=== PATIENT | female | born 1990 | race Caucasian/White ===

== ENCOUNTER → 2023-10-17 | Outpatient (CLI) | payer OTHER, SELFPAY | END | disposition home or self-care (01) | LOC: MFPLAB 11:49 | PROVIDERS: PCP Family Medicine; Visit Provider Nurse Practitioner Family | DX: Z00.00 Encounter for general adult medical examination without abnormal findings (principal) ==

== ENCOUNTER → 2023-10-25 | Outpatient (CLI) | payer OTHER, SELFPAY ==
--- NOTE | 2023-10-25 11:11 | ECHOD_ITS ---
Reason For Study: PRE OP Procedure This was a 2D Doppler, Color Flow transthoracic echocardiogram. Exam performed in department. Left Ventricle Normal size and thickness. The left ventricular ejection fraction is 55 %. Normal diastololic function. Right Ventricle Normal right ventricle. Atria The left and right atria are normal. Mitral Valve Mild (1+) mitral valve insufficiency. Tricuspid Valve Trivial tricuspid valve insufficiency. Right ventricular systolic pressure estimated to be 36 mmHg. Aortic Valve Trisinus/trileaflet aortic valve. Pulmonic Valve The pulmonic valve is not well visualized. Great Vessels Normal sized aortic root. Pericardium/Pleural No pericardial effusion. MMode/2D Measurements & Calculations LVIDd: 5.1 cm IVSd: 0.62 cm Ao root diam: 2.8 cm LVIDs: 3.5 cm LVPWd: 0.81 cm LA dimension: 3.2 cm RVDd: 3.0 cm FS: 32.3 % LAV(MOD-bp): 52.2 ml LVAd ap4: 31.7 cm2 LVAd ap2: 30.9 cm2 LAV(MOD-bp) Indexed: 25.8 ml/m2 LVLd ap4: 8.6 cm LVLd ap2: 8.7 cm LAV(MOD-sp2): 48.9 ml EDV(MOD-sp4): 97.7 ml EDV(MOD-sp2): 90.8 ml LAV(MOD-sp4): 47.6 ml EDV(sp4-el): 99.0 ml EDV(sp2-el): 93.5 ml LVAs ap4: 18.8 cm2 LVAs ap2: 18.9 cm2 LVLs ap4: 7.0 cm LVLs ap2: 7.4 cm ESV(MOD-sp4): 43.0 ml ESV(MOD-sp2): 40.5 ml ESV(sp4-el): 42.6 ml ESV(sp2-el): 41.0 ml EF(MOD-sp4): 56.0 % EF(MOD-sp2): 55.3 % EF(sp4-el): 56.9 % SV(MOD-sp4): 54.7 ml SV(MOD-sp2): 50.2 ml SV(sp4-el): 56.3 ml TAPSE: 2.4 cm LA A4 area: 18.7 cm2 RA A4 area: 16.4 cm2 Time Measurements MV dec time: 0.24 sec Doppler Measurements & Calculations MV E max david: 96.9 cm/sec Lat Peak E' David: 22.6 cm/sec Med Peak E' David: 16.0 cm/sec MV A max david: 66.1 cm/sec E/E' lat: 4.3 E/E' med: 6.1 MV E/A: 1.5 MV V2 max: 109.2 cm/sec MV P1/2t max david: 128.6 cm/sec Ao V2 max: 139.4 cm/sec MV max P.8 mmHg MV P1/2t: 91.4 msec Ao max P.8 mmHg MV V2 mean: 60.4 cm/sec MV dec slope: 412.0 cm/sec2 Ao V2 mean: 103.9 cm/sec MV mean P.7 mmHg Ao mean P.8 mmHg MV V2 VTI: 33.8 cm MVA(P1/2t): 2.4 cm2 Ao V2 VTI: 32.3 cm AV (velocity ratio): 0.82 LV V1 max: 115.5 cm/sec MR max david: 518.3 cm/sec PA V2 max: 98.0 cm/sec LV V1 max P.3 mmHg MR max P.5 mmHg PA V2 mean: 69.7 cm/sec LV V1 mean P.2 mmHg MR mean david: 424.1 cm/sec LV V1 mean: 83.5 cm/sec MR mean P.7 mmHg LV V1 VTI: 26.4 cm MR VTI: 183.9 cm TR max david: 280.3 cm/sec TR max P.6 mmHg ECHO/Echo Complete Interpretation Summary The left ventricular ejection fraction is 55 %. Mild (1+) mitral valve insufficiency. Right ventricular systolic pressure estimated to be 36 mmHg. Ordering Physician: Elyssa Cheney Referring Physician: Katie Love Performed By: Jhonatan, Samantha, RDCS, RVT
== END | disposition home or self-care (01) ==
PROVIDERS: PCP Family Medicine; Referring Provider Nurse Practitioner Family; Visit Provider Nurse Practitioner Family
DX: Z01.818 Encounter for other preprocedural examination (principal)
CPT/HCPCS: 93306